=== PATIENT | male | born 1960 | race Caucasian/White ===

== ENCOUNTER 2016-09-09 11:31 | Emergency (ER) | payer OTHER ==
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
[2016-09-09 15:09] VITALS: BP 128/75
== END 2016-09-09 15:08 | disposition home or self-care (01) ==
LOC: ER 11:31
DX: S16.1XXA Strain of muscle, fascia and tendon at neck level, initial encounter (principal); S60.222A Contusion of left hand, initial encounter; M79.602 Pain in left arm; M25.512 Pain in left shoulder; E11.9 Type 2 diabetes mellitus without complications; V89.2XXA Person injured in unspecified motor-vehicle accident, traffic, initial encounter
CPT/HCPCS: 99284; 73130; 73030; 72125; L0120